=== PATIENT | male | born 1950 | race Caucasian/White ===

== ENCOUNTER 2023-09-25 10:37 | Emergency (ER) | payer MEDICAID ==
[~2023-09-25] VITALS: Ht 175.3 cm; Wt 96.6 kg
[2023-09-25 10:37] VITALS: BP_SYST 133; PULSE 78; RESP 18; TEMP 97.8; O2SAT 100
[2023-09-25] MEDS ORDERED: ASPIRIN 81 MG TAB.CHEW PO ONE (11:00)
[2023-09-25 11:21] LABS: BASOPHILS % (AUTO) 0.6 % (0.0-2.0); EOSINOPHILS # (AUTO) 0.3 K/uL (0.0-0.4); EOSINOPHILS % (AUTO) 7.9 % (0.0-4.0); HEMOGLOBIN 12.4 g/dL (14.0-18.0); LYMPHOCYTES # (AUTO) 1.4 K/uL (1.0-5.5); LYMPHOCYTES % (AUTO) 42.7 % (20.5-51.5); MEAN CORPUSCULAR HEMOGLOBIN 29 pg (27-31); MEAN CORPUSCULAR HGB CONC 34 % (32-36); MEAN CORPUSCULAR VOLUME 84 fL (79.0-98.0); MONOCYTES # (AUTO) 0.2 K/uL (0.0-1.0); MONOCYTES % (AUTO) 7.1 % (1.7-9.3); NEUTROPHILS # (AUTO) 1.4 K/uL (1.8-7.7); NEUTROPHILS % (AUTO) 41.7 % (40.0-70.0); PLATELET COUNT (AUTO) 338 K/uL (130-430); RED CELL DISTRIBUTION WIDTH 14.9 % (9.0-15.0); WHITE BLOOD COUNT (AUTO) 3.3 K/uL (4.8-10.8)
[2023-09-25 11:54] LABS: ANION GAP 13 (5-15); CALCIUM 9.6 mg/dL (8.4-11.0); CARBON DIOXIDE 21 mmol/L (23-29); CHLORIDE 102 mmol/L (98-107); CREATININE 1.64 mg/dL (0.55-1.30); GLUCOSE 158 mg/dL (74-106); POTASSIUM 4.8 mmol/L (3.5-5.1); SODIUM SERUM 136 mmol/L (136-145); UREA NITROGEN, BLOOD 26 mg/dL (8-21)
[2023-09-25] MEDS ORDERED: ASPI-1155 PO (13:07)
[2023-09-25] MEDS ORDERED: ATOR-1 PO (13:07)
[2023-09-25] MEDS ORDERED: HYDR25TA4 PO (13:07)
[2023-09-25] MEDS ORDERED: METF-381 PO (13:07)
[2023-09-25] MEDS ORDERED: GLIM4TAB37 PO (13:07)
[2023-09-25] MEDS ORDERED: ISOS40TA19 PO (13:07)
[2023-09-25] MEDS ORDERED: NITROGLYCERIN 0.4 MG TAB.SUBL SL PRN (13:45)
[2023-09-25] MEDS ORDERED: ZOLPIDEM TARTRATE 5 MG TABLET PO PRN (13:45)
[2023-09-25] MEDS ORDERED: MORPHINE 2 MG/ML INJ. SYRINGE IVP PRN ×2 (13:45)
[2023-09-25] MEDS ORDERED: MAGNESIUM SULFATE 50 ML IV PRN (13:45)
[2023-09-25] MEDS ORDERED: DOCUSATE SODIUM 100 MG CAPSULE PO PRN (13:45)
[2023-09-25] MEDS ORDERED: INSULIN LISPRO SLIDING SCALE 100 UNITS/ML, 3 ML VIAL (humaLOG) SUBCUT PRN (13:45)
[2023-09-25] MEDS ORDERED: LORazepam 2 MG/ML VIAL IVP PRN (13:45)
[2023-09-25] MEDS ORDERED: MUPIROCIN 2% TOPICAL OINTMENT 22 GM NS PRN (13:45)
[2023-09-25] MEDS ORDERED: POTASSIUM CHLORIDE 20 MEQ TABLET.ER PO PRN (13:45)
[2023-09-25] MEDS ORDERED: ACETAMINOPHEN 500 MG TABLET PO PRN ×3 (13:45)
[2023-09-25] MEDS ORDERED: DEXTROSE 50% JECT 50 ML DISP.SYRIN IVP PRN (13:45)
[2023-09-25] MEDS ORDERED: ONDANSETRON HCL 4 MG/2 ML VIAL IVP PRN (13:45)
[2023-09-25] MEDS ORDERED: ASPIRIN 81 MG TABLET(ECOTRIN) PO ONE (14:00)
[2023-09-25 15:00] VITALS: BP_SYST 136; PULSE 64; RESP 16; TEMP 97.4; O2SAT 100
[2023-09-25] MEDS: NACL 0.9% 1,000 ML IV SCH (15:04)
[2023-09-26] MEDS ORDERED: HYDROCHLOROTHIAZIDE 25 MG TABLET (HCTZ) PO SCH (09:00)
[2023-09-26] MEDS ORDERED: ATORVASTATIN 20 MG TABLET PO SCH (09:00)
[2023-09-26] MEDS ORDERED: ASPIRIN 81 MG TABLET(ECOTRIN) PO SCH (09:00)
== END 2023-09-25 15:20 | disposition left against medical advice (07) ==
LOC: SED 10:37
DX: R07.9 Chest pain, unspecified (principal); I25.10 Atherosclerotic heart disease of native coronary artery without angina pectoris; I10 Essential (primary) hypertension; E11.9 Type 2 diabetes mellitus without complications; Z98.890 Other specified postprocedural states
CPT/HCPCS: 36415; 71045; 80048; 83037; 83880; 84443; 84484; 85025; 93005; 99285